=== PATIENT | female | born 1995 | race Caucasian/White ===

== ENCOUNTER 2017-11-18 05:41 | Outpatient (CLI) | payer BC ==
[~2017-11-18] VITALS: Ht 167.6 cm; Wt 64.9 kg
[~2017-11-18 05:41] MED LIST: ACHD5005 PO; ALBU8.5H2 IH; BC PILL PO; CELE100C PO; HYDR-3454 PO; OXYC-202 PO
[2017-11-18] MEDS ORDERED: CITA20TA9 PO (09:57)
[2017-11-18] MEDS ORDERED: PROP10TA8 PO (09:57)
[2017-11-21] MEDS ORDERED: AMOX250S5 PO (09:20)
[2017-11-21] MEDS ORDERED: DEXAINTSOL PO (09:20)
[2017-11-21] MEDS ORDERED: HYDR15SO8 PO (09:20)
[2017-11-21] MEDS ORDERED: TETRACAINESUCKERS MT (09:20)
== END 2017-11-18 13:32 ==
LOC: PREOP 05:41
PROVIDERS: ATTEND Otolaryngology Otolaryngology/Facial Plastic Surgery
DX: Z01.818 Encounter for other preprocedural examination (principal)

== ENCOUNTER → 2018-03-19 | Outpatient (CLI) | payer BC ==
[~2018-03-19] MED LIST changes: +AMOX250S5 PO; +CITA20TA9 PO; +DEXAINTSOL PO; +HYDR15SO8 PO; +IOHEXOL 350 MG/ML 100 ML (OMNIPAQUE 350) VIAL IV ONE; +NS 250 ML (IVPB) BAG IV ONE; -OXYC-202 PO; +OXYC1TAB12 PO; +PROP10TA8 PO; +TETRACAINESUCKERS MT
--- NOTE | 2018-03-19 08:52 | Diagnostic Imaging Report ---
PROCEDURE: CT abdomen and pelvis with contrast. TECHNIQUE: Multiple contiguous axial images were obtained through the abdomen and pelvis after administration of intravenous contrast. INDICATION: Left lower quadrant pain for one year. No prior studies are available for comparison. Lung bases are clear. No discrete liver mass is identified. The gallbladder is not identified and may be surgically absent. No biliary duct dilatation is seen. The pancreas and spleen are unremarkable. No adrenal mass is identified. The kidneys are unremarkable. The aorta is non-aneurysmal. Bowel loops are nondilated and appear nonobstructed. There is moderate stool in colon, perhaps owing to constipation. There is no ascites. No inflammatory process is seen. The bladder and uterus are unremarkable. Bony structures are nonacute. IMPRESSION: Moderate stool in the colon suggestive of constipation. Study is otherwise unremarkable. Dictated by: Dictated on workstation # [id number]
== END ==
LOC: RAD 08:02
PROVIDERS: ATTEND Internal Medicine
DX: K92.1 Melena (principal); R10.32 Left lower quadrant pain
CPT/HCPCS: 74177

== ENCOUNTER → 2018-04-10 | Outpatient (CLI) | payer BC ==
[~2018-04-10] MED LIST changes: -IOHEXOL 350 MG/ML 100 ML (OMNIPAQUE 350) VIAL IV ONE; -NS 250 ML (IVPB) BAG IV ONE
--- NOTE | 2018-04-10 17:31 | Diagnostic Imaging Report ---
INDICATION: Left lower abdominal pain. TIME OF EXAM: 3:46 PM FINDINGS: No definite free air is seen. The bowel gas pattern appears nonobstructive. No pathologic calcifications are seen although there is a small calcific density in the left pelvis approximately 3 mm in size. A distal left ureteric calculus cannot be entirely excluded. IMPRESSION: Unremarkable abdominal radiographs apart from questionable distal left ureteric calculus. No other abnormality is seen. Dictated by: Dictated on workstation # [id number]
== END ==
LOC: RAD 15:06
PROVIDERS: ATTEND Internal Medicine
DX: R10.84 Generalized abdominal pain (principal)
CPT/HCPCS: 74019

== ENCOUNTER → 2018-04-15 | Outpatient (CLI) | payer BC ==
--- NOTE | 2018-04-15 11:59 | Diagnostic Imaging Report ---
Supine abdomen at 1133 hours. INDICATION: Left ureteral stone. FINDINGS: The previous exam of 04/10/2018 noted a 3 MM linear calcification near the ureterovesical junction on the left. That finding is difficult to visualize on this study and the ureteral stone may have passed. No other abnormality is identified. IMPRESSION: The 3 MM calculus at the ureterovesical junction on the left seen previously is not well-visualized on this study and may have passed. Clinical followup is recommended. Dictated by: Dictated on workstation # [id number]
== END ==
LOC: RAD 10:52
PROVIDERS: ATTEND Urology
DX: N20.1 Calculus of ureter (principal)
CPT/HCPCS: 74018

== ENCOUNTER → 2018-05-26 | Outpatient (CLI) | payer BC ==
--- NOTE | 2018-05-26 11:09 | Diagnostic Imaging Report ---
Pelvis and bilateral hips. Indication: Right hip pain. A single AP view of the pelvis and AP and lateral views of both hip joints were obtained. There is no fracture, dislocation or acute bony abnormality evident. The hip and sacroiliac joints are fairly well maintained and appear similar to the prior abdomen exam of 04/15/2018. The soft tissues are unremarkable. Impression: There is no evidence for an acute bony abnormality. Dictated by: Dictated on workstation # [id number]
== END ==
LOC: RAD 08:32
PROVIDERS: ATTEND Internal Medicine
DX: M25.551 Pain in right hip (principal); M25.552 Pain in left hip
CPT/HCPCS: 73523

== ENCOUNTER 2018-07-11 14:00 | Inpatient (IN) | payer BC | END 2018-07-14 10:35 | disposition other institution (70) | LOC: 4TH 07-12 12:27 → ICU 14:00 | DX: A41.9 Sepsis, unspecified organism (principal); K52.9 Noninfective gastroenteritis and colitis, unspecified; K58.9 Irritable bowel syndrome, unspecified; E87.2 Acidosis; E86.0 Dehydration; K92.1 Melena; D64.9 Anemia, unspecified; J45.909 Unspecified asthma, uncomplicated; Z87.19 Personal history of other diseases of the digestive system; Z90.49 Acquired absence of other specified parts of digestive tract; Z87.442 Personal history of urinary calculi ==

== ENCOUNTER 2019-01-29 15:15 | Day surgery (SDC) | payer BC ==
[~2019-01-29] VITALS: Ht 167.6 cm; Wt 62.1 kg
[~2019-01-29 15:15] MED LIST changes: +ACETAMINOPHEN 500 MG TAB (TYLENOL) PO PRN; +ALPR0.254 PO; +ALPRAZolam 0.25 MG (XANAX) TAB PO PRN; +CALCIUM CARBONATE 500 MG (TUMS) TAB.CHEW PO PRN; +DICY10CA12 PO; +DICY20TA10 PO; +ETHY1TAB4 PO; -HYDR-3454 PO; +HYDR-3455 PO; +METOCLOPRAMIDE INJ 10 MG/2 ML (REGLAN) IVP PRN; +ONDA4TAB11 PO; +ONDANSETRON 4 MG (ZOFRAN) ORAL DISSOLVE TAB PO PRN; +ONDANSETRON 4 MG/2 ML (SDV) Z0FRAN IVP PRN; +POLY17PO6 PO; +PROMETHAZINE INJ 25 MG/ML (PHENERGAN) AMP IM PRN; +diphenhydrAMINE 25 MG TAB (BENADRYL) PO PRN
[2019-01-29] MEDS ORDERED: HYDR-3812 PO (15:34)
[2019-01-29] MEDS ORDERED: ETHY1TAB2 PO (15:34)
[2019-01-29] MEDS ORDERED: PROM12.511 PO (15:34)
[2019-01-29 15:40] LABS: BASOPHILS % (AUTO) 1 % (0-10); EOSINOPHILS # (AUTO) 0.1 10^3/uL (0.0-0.3); EOSINOPHILS % (AUTO) 2 % (0-10); HEMATOCRIT 35 % (35-52); HEMOGLOBIN 11.6 G/DL (11.5-16.0); LYMPHOCYTES # (AUTO) 1.8 X 10^3 (1.0-4.0); LYMPHOCYTES % (AUTO) 29 % (12-44); MEAN CORPUSCULAR HEMOGLOBIN 30 PG (25-34); MEAN CORPUSCULAR HGB CONC 34 G/DL (32-36); MEAN CORPUSCULAR VOLUME 88 FL (80-99); MEAN PLATELET VOLUME 10.7 FL (7.4-10.4); MONOCYTES # (AUTO) 0.4 X 10^3 (0.0-1.0); MONOCYTES % (AUTO) 7 % (0-12); NEUTROPHILS # (AUTO) 3.9 X 10^3 (1.8-7.8); NEUTROPHILS % (AUTO) 62 % (42-75); PLATELET COUNT 246 10^3/uL (130-400); RED CELL DISTRIBUTION WIDTH 11.9 % (10.0-14.5); WHITE BLOOD COUNT 6.3 10^3/uL (4.3-11.0)
[2019-01-29] MEDS ORDERED: MAGNESIUM CITRATE 300 ML BTL PO NR ×2 (15:45→19:00)
[2019-01-29 16:00] VITALS: BP 110/69
[2019-01-29 16:03] LABS: ALANINE AMINOTRANSFERASE 11 U/L (0-55); ALKALINE PHOSPHATASE 39 U/L (40-136); BILIRUBIN,TOTAL 0.4 MG/DL (0.1-1.0); BUN/CREATININE RATIO 17; CALCIUM 9.1 MG/DL (8.5-10.1); CARBON DIOXIDE 19 MMOL/L (21-32); CHLORIDE 109 MMOL/L (98-107); CREATININE SERUM 0.78 MG/DL (0.60-1.30); GFR ESTIMATED > 60; GLUCOSE 106 MG/DL (70-105); POTASSIUM 3.6 MMOL/L (3.6-5.0); SODIUM 137 MMOL/L (135-145); TOTAL PROTEIN 6.8 GM/DL (6.4-8.2)
[2019-01-29] MEDS: POTASSIUM CHLORIDE INJ 10 MEQ in NS IV 1000 ML 1,000 ML IV SCH ×2 (16:03→22:44)
[2019-01-29 16:07] LABS: ERYTHROCYTE SEDIMENTATION RATE 20 MM/HR (0-20)
[2019-01-29 16:08] VITALS: BP 110/69
[2019-01-29] MEDS: HYDROmorphone 2 MG/ML VIAL (DILAUDID) IVP PRN ×2 (16:09→21:33)
[2019-01-29] MEDS ORDERED: DIPH25CA79 PO (16:22)
[2019-01-29] MEDS ORDERED: TRAM50TA2 PO (16:22)
[2019-01-29] MEDS ORDERED: CETI10TA20 PO (16:22)
[2019-01-29] MEDS ORDERED: HOLD METFORMIN - RECEIVED CONTRAST 20 ML VIAL IV SCH (18:15)
[2019-01-29] MEDS ORDERED: IOHEXOL 350 MG/ML 100 ML (OMNIPAQUE 350) VIAL IV ONE (18:15)
[2019-01-29] MEDS ORDERED: NS 100 ML (IVPB) BAG IV ONE (18:15)
[2019-01-29] MEDS ORDERED: CATHETER FLUSH 10 ML SYR IV PRN (18:15)
[2019-01-29] MEDS ORDERED: DIATRIZOATE MEGLUM/SODIUM 37% 120 ML (GASTROGRAFIN) PO ONE (18:30)
--- NOTE | 2019-01-29 18:40 | Diagnostic Imaging Report ---
PROCEDURE: CT abdomen and pelvis with contrast. TECHNIQUE: Multiple contiguous axial images were obtained through the abdomen and pelvis after administration of intravenous contrast. Auto Exposure Controls were utilized during the CT exam to meet ALARA standards for radiation dose reduction. INDICATION: Constipation and diarrhea. COMPARISON: Multiple priors, most recent performed on 07/11/2018. FINDINGS: The lung bases are clear. The visualized heart is normal in size. The liver, spleen, pancreas, and adrenal glands are unremarkable. The gallbladder is surgically absent. There is no biliary or pancreatic ductal dilatation demonstrated. The kidneys are symmetric in size and demonstrate normal enhancement, without evidence of renal calculus, hydronephrosis, or suspicious renal mass. Oral contrast was administered and reaches the hepatic flexure, without evidence of obstruction. No focal bowel wall thickening is appreciated. The appendix is normal. No pneumoperitoneum, abdominal free fluid, or loculated collection. No lymphadenopathy is appreciated. The aorta is nonaneurysmal. There is no evidence of venous thrombosis. The bladder and uterus demonstrate a normal CT appearance. No adnexal mass or pelvic free fluid is appreciated. The abdominal wall is unremarkable. No acute osseous abnormality is appreciated. IMPRESSION: No acute abdominal or pelvic pathology. No focal bowel wall thickening or evidence of obstruction. Mild retained stool in the ascending colon, without significant stool burden appreciated. No significant change from prior. Dictated by: Dictated on workstation # [id number]
[2019-01-29 20:00] VITALS: BP 100/61
--- NOTE | 2019-01-29 21:04 | Progress Note - Hospitalist ---
Progress Note This is a 23-year-old white female clinic patient of mine for 13 years who has had a recent issue with hematochezia abdominal pain irregular bowel movements severe nausea and fatigue. She is in the midst of awaiting appointment for 02/18/2019 for inflammatory bowel disease specialist when I reached out to gastroenterology at [facility] who presented to the hospital after a direct admission from my clinic due to abdominal pain and severe nausea unable to maintain adequate fluids and nutrition. I did speak with general surgery who will likely perform endoscopy but we will obtain CT scan supportive IV fluids and manage the nausea with antiemetics in the meantime. MEME MORGAN DO Jan 29, 2019 21:03
[2019-01-30 00:27] VITALS: BP 95/59
[2019-01-30] MEDS: HYDROmorphone 2 MG/ML VIAL (DILAUDID) IVP PRN ×4 (02:19→16:56)
--- NOTE | 2019-01-30 02:26 | CONSULTATION REPORT ---
DATE OF SERVICE: 01/29/2019 ATTENDING PRIMARY CARE PHYSICIAN: Dr. Gracy Champagne. HISTORY OF PRESENT ILLNESS: The patient is a 23-year-old female who has had issues with crampy abdominal pain with associated nausea as well as occasional episodes of diarrhea and bloody stools for greater than 10 years of her life. She has had intermittent episodes of abdominal pain as well as change in bowel habits encompassing liquid stools as well as mucus and blood within her stools. She also does have constipation as well. She did have significant abdominal pain and was also found to be highly suspicious for sepsis and was treated with antibiotics for what appeared to be enteritis on a CT scan. She was referred to gastroenterology where she underwent a colonoscopy as well as a capsule endoscopy in July 2018; however, no findings were consistent with inflammatory bowel disease and she was treated medically for irritable bowel syndrome. She continues to have symptoms and states again she has had crampy abdominal pain and again noticed change in bowel habits recently with pain more in the mid gastric region as well as noticing slight mucusy stools yesterday. PAST MEDICAL HISTORY: Irritable bowel syndrome, previous history of enteritis and sepsis. PAST SURGICAL HISTORY: Laparoscopic cholecystectomy. ALLERGIES: No known drug allergies. MEDICATIONS: Oral contraceptive pill. SOCIAL HISTORY: Negative smoke, negative alcohol. Previous history of caffeine through pop; however, she has decreased significantly in the past year. FAMILY HISTORY: She has both paternal and maternal grandfathers with colon cancer; however, no first-degree relatives. No known family history of inflammatory bowel disease. VITAL SIGNS: Temperature 99.3, blood pressure 110/69, pulse 79, respirations 16, pulse ox 98% on room air. REVIEW OF SYSTEMS: Well-nourished female, in no acute distress. She is not experiencing any shortness of breath or difficulty breathing. No chest pain, palpitations, diaphoresis. Intermittent episodes of crampy abdominal pain in the mid gastric region; however, would move into different quadrants of the abdomen. Intermittent episodes of constipation and diarrhea as well as mucus within her stools as well as small amounts of blood per rectum as well. She also does have intermittent episodes of nausea; however, no vomiting. No fever, chills. No recent inadvertent weight loss. All other review of systems negative. PHYSICAL EXAMINATION: CHEST: Clear. Good breath sounds bilaterally. HEART: Regular, no murmurs. EXTREMITIES: No lower extremity edema, negative Homans' sign. HEENT: No scleral icterus. No cervical lymphadenopathy. ABDOMEN: Soft. There is pain along the entirety of the abdomen; however, more in the mid gastric region as well as the right upper abdominal quadrant. There are no peritoneal signs. No abdominal distention. SKIN: Warm, dry. LABORATORY DATA: WBC 6.9, hemoglobin 9.6, hematocrit 35, platelets 246. BUN 13, creatinine 0.78. ASSESSMENT AND PLAN: A 23-year-old female with recurrent episodes of crampy abdominal pain with associated nausea as well as intermittent episodes of diarrhea and constipation; however, also has issues with mucusy stools as well as blood per rectum. She has had previous endoscopy for; however, this did not heal. She was diagnosed with irritable bowel syndrome; however, she continues to have continued symptoms. The continued symptoms as well as the CT scan findings of enteritis on previous CT scan as well as a septic episode 07/2018 may indicate some level of undiagnosed inflammatory bowel disease. At this time, she is somewhat symptomatic and we will proceed with a colonoscopy as well as biopsies as appropriate on this admission. Job ID: [id number] DocumentID: [id number] Dictated Date: 01/29/2019 17:55:02 Student Services Advisor Date: 01/29/2019 18:37:15 Dictated By: AQUILINO HA MD
[2019-01-30 04:05] VITALS: BP 102/63
[2019-01-30] MEDS: POTASSIUM CHLORIDE INJ 10 MEQ in NS IV 1000 ML 1,000 ML IV SCH ×2 (05:31→13:32)
[2019-01-30 06:39] LABS: BASOPHILS % (AUTO) 0 % (0-10); EOSINOPHILS # (AUTO) 0.2 10^3/uL (0.0-0.3); EOSINOPHILS % (AUTO) 3 % (0-10); HEMATOCRIT 34 % (35-52); HEMOGLOBIN 11.3 G/DL (11.5-16.0); LYMPHOCYTES # (AUTO) 2.4 X 10^3 (1.0-4.0); LYMPHOCYTES % (AUTO) 33 % (12-44); MEAN CORPUSCULAR HEMOGLOBIN 30 PG (25-34); MEAN CORPUSCULAR HGB CONC 33 G/DL (32-36); MEAN CORPUSCULAR VOLUME 89 FL (80-99); MEAN PLATELET VOLUME 10.7 FL (7.4-10.4); MONOCYTES # (AUTO) 0.6 X 10^3 (0.0-1.0); MONOCYTES % (AUTO) 9 % (0-12); NEUTROPHILS # (AUTO) 4.1 X 10^3 (1.8-7.8); NEUTROPHILS % (AUTO) 56 % (42-75); PLATELET COUNT 243 10^3/uL (130-400); RED CELL DISTRIBUTION WIDTH 12.1 % (10.0-14.5); WHITE BLOOD COUNT 7.3 10^3/uL (4.3-11.0)
[2019-01-30 07:18] LABS: ALANINE AMINOTRANSFERASE 12 U/L (0-55); ALBUMIN 3.6 GM/DL (3.2-4.5); ALKALINE PHOSPHATASE 39 U/L (40-136); BILIRUBIN,TOTAL 0.4 MG/DL (0.1-1.0); BUN/CREATININE RATIO 10; CALCIUM 8.4 MG/DL (8.5-10.1); CARBON DIOXIDE 20 MMOL/L (21-32); CHLORIDE 110 MMOL/L (98-107); CREATININE SERUM 0.72 MG/DL (0.60-1.30); GFR ESTIMATED > 60; GLUCOSE 77 MG/DL (70-105); POTASSIUM 3.6 MMOL/L (3.6-5.0); SODIUM 138 MMOL/L (135-145); TOTAL PROTEIN 6.2 GM/DL (6.4-8.2)
[2019-01-30 08:00] VITALS: BP 107/72
--- NOTE | 2019-01-30 10:27 | History & Physical-Hospitalist ---
History of Present Illness HPI/Chief Complaint Chief complaint: Abdominal pain History present illness: This is a 23-year-old white female who has had an ongoing abdominal and gastrointestinal issues since May 2018 which is suspicious for inflammatory bowel disease but did have endoscopy by gastroenterology and labs revealed consistent with some sort of inflammatory bowel disease but that was not confirmed on colonoscopy but did reveal an ulcer. She is in the midst of seeing specialists for inflammatory bowel disease on 02/18/19 but the past 2 weeks she's had ongoing nausea significant weight loss of 15 pounds over the last several months and continued abdominal pain with altered bowel habits along with melena and hematochezia. CT scan was not very revealing that I obtained yesterday and the labs looked stable so she will undergo a colonoscopy by Dr. Rosales which is appreciated. Source: patient Exam Limitations: no limitations Date Seen 01/30/19 Time Seen by a Provider: 10:30 Attending Physician Gracy Morgan DO PCP Gracy Morgan DO Referring Physician Date of Admission Jan 29, 2019 at 15:15 Home Medications & Allergies Home Medications Reviewed patient Home Medication Reconciliation performed by pharmacy medication reconciliations production maintenance technician and/or nursing. Patients Allergies have been reviewed. Allergies Allergies Coded Allergies No Known Drug Allergies (Ytbvrqyxyd16/30/11) Past Nlsmsjk-Tavrwl-Yctfar Hx Past Med/Social Hx: Reviewed Nursing Past Med/Soc Hx, Reviewed and Corrections made Patient Social History Marrital Status: single Employed/Student: employed (RN ) Alcohol Use: Denies Use Recreational Drug Use: No Smoking Status: Never a Smoker Physical Abuse Screen: No Sexual Abuse: No Recent Foreign Travel: No Contact w/other who traveled: No Recent Hopitalizations: Yes (2018) Recent Infectious Disease Expo: No Immunizations Up To Date Tetanus Booster (TDap): Unknown Pediatric: No Date of Influenza Vaccine: Mar 25, 2018 Seasonal Allergies Seasonal Allergies: Yes Past Medical History Surgeries: Gallbladder Currently Using CPAP: No Currently Using BIPAP: No Reproductive: No Genitourinary: Kidney Stones Gastrointestinal: Gall Bladder Disease, Irritable Bowel HEENT: Tonsilitis History of Blood Disorders: No Adverse Reaction to Blood Cor[place]: No Family History No Pertinent Family Hx Review of Systems Constitutional: see HPI, weight loss EENTM: no symptoms reported Respiratory: no symptoms reported Gastrointestinal: abdominal pain (LLQ), loss of appetite, nausea, vomiting Physical Exam Physical Exam Vital Signs Vital Signs - First Documented 01/29/19 16:00 Temp 99.3 Pulse 76 Resp 16 B/P (MAP) 110/69 (83) Pulse Ox 98 O2 Delivery Room Air Capillary Refill : Height, Weight, BMI Height: 5'6.00" Weight: 137lbs. 0.0oz. 62.548773sk; 22.1 BMI Method: General Appearance: No Apparent Distress, WD/WN, Chronically ill, Thin, Other Eyes: Right Eye Normal Inspection, Right Eye PERRL HEENT: PERRL/EOMI, Normal ENT Inspection, Pharynx Normal, Moist Mucous Membranes Neck: Full Range of Motion, Normal Inspection, Non Tender Respiratory: Chest Non Tender, Lungs Clear, Normal Breath Sounds, No Accessory Muscle Use, No Respiratory Distress Cardiovascular: Regular Rate, Rhythm, No Edema, No Gallop, No JVD, No Murmur, Normal Peripheral Pulses Gastrointestinal: Normal Bowel Sounds, No Organomegaly, No Pulsatile Mass, Soft, Tenderness Back: Normal Inspection, No CVA Tenderness, No Vertebral Tenderness Extremity: Normal Capillary Refill, Normal Inspection, Normal Range of Motion, Non Tender, No Calf Tenderness, No Pedal Edema Neurologic/Psychiatric: Alert, Oriented x3, No Motor/Sensory Deficits, Normal Mood/Affect Skin: Normal Color, Warm/Dry Lymphatic: No Adenopathy Results Results/Procedures Labs Laboratory Tests 01/29/19 15:30 01/30/19 06:25 Patient resulted labs reviewed. Assessment/Plan Admission Diagnosis Assessment: Severe abdominal pain with nausea and weight loss of 15 pounds suspicious for inflammatory bowel disease Ulcer on colonoscopy [address] Martell Plan: IV fluids Antibiotics Pain meds Reviewed CT Reviewed labs Colonoscopy today by Dr. Rosales Admission Status: Observation Diagnosis/Problems Diagnosis/Problems (1) Inflammatory bowel disease Status: Chronic (2) Dehydration Status: Acute Clinical Quality Measures DVT/VTE Risk/Contraindication: RFS Level Per Nursing on Admit: 1=Low/No VTE PPX GRACY MORGAN DO Jan 30, 2019 10:27
[2019-01-30 12:00] VITALS: BP 94/58
[2019-01-30] MEDS ORDERED: PROPOFOL INJECTION 50 ML IV ONE ×2 (15:04→15:37)
[2019-01-30] MEDS ORDERED: MIDAZOLAM 2 MG/2 ML (VERSED) VIAL ONE (15:04)
[2019-01-30] MEDS ORDERED: LACTATED RINGERS 1,000 ML IV ONE (15:12)
[2019-01-30] MEDS ORDERED: LIDOCAINE JELLY 2% 6 ML SYRINGE ONE (15:20)
[2019-01-30] MEDS ORDERED: proPOfol 200 MG/20 ML (DIPRIVAN) VIAL IV ONE (15:36)
--- NOTE | 2019-01-30 15:58 | Anesthesia-General Post-Op ---
MAC Patient Condition Mental Status/LOC: Same as Preop Cardiovascular: Satisfactory Nausea/Vomiting: Absent Respiratory: Satisfactory Pain: Controlled Complications: Absent Post Op Complications Complications None Follow Up Care/Instructions Patient Instructions None needed. Anesthesiology Discharge Order Discharge Order Patient is doing well, no complaints, stable vital signs, no apparent adverse anesthesia problems. No complications reported per nursing. MARYANN KHANNA CRNA Jan 30, 2019 15:58
--- NOTE | 2019-01-30 16:00 | Progress Note-Post Operative ---
Post-Operative Progess Note Surgeon (s)/Can Cutter (s) Surgeon AQUILINO HA MD Can Cutter: none Pre-Operative Diagnosis chronic abd pain, rectal bleed Post-Operative Diagnosis mild inflammation rectum and hepatic flexure. Procedure & Operative Findings Date of Procedure 01/30/19 Procedure Performed/Findings colonoscopy with bx. Anesthesia Type mac Estimated Blood Loss Estimated blood loss (mL): minimal Specimens/Packing Specimens Removed rectum, hepatic flex AQUILINO HA MD Jan 30, 2019 16:00
[2019-01-30] MEDS ORDERED: LIDOCAINE JELLY 2% 6 ML SYRINGE TOP ONE (16:15)
[2019-01-30] MEDS ORDERED: LACTATED RINGERS 1,000 ML IV SCH (16:15)
--- NOTE | 2019-01-30 16:20 | OPERATIVE REPORT ---
DATE OF SERVICE: 01/30/2019 ATTENDING PRIMARY CARE PHYSICIAN: Gracy Champagne DO PREOPERATIVE DIAGNOSIS: Intermittent abdominal pain with change in bowel habits and rectal bleeding. POSTOPERATIVE DIAGNOSIS: Mild colitis of the hepatic flexure and the rectum. PROCEDURE PERFORMED: Colonoscopy with biopsy. SURGEON: Aquilino Rosales MD ANESTHESIA: Monitored anesthesia care. ESTIMATED BLOOD LOSS: Minimal. FINDINGS: There was mild patchy inflammation, which appeared to be very small superficial ulcerations identified of the rectum as well as the hepatic flexure. No active bleeding. DISPOSITION: The patient tolerated the procedure well. INDICATIONS: The patient is a 23-year-old female who has had a longstanding history of chronic abdominal pain and suspected inflammatory bowel disease. She reports that she has had crampy abdominal pain throughout all 4 quadrants of the abdomen and occasional episodes of diarrhea and bloody stools. With the abdominal pain, she will notice a change in bowel habits with liquid stools as well as mucus as well as blood within her stools as well. She did have a significant abdominal pain and there was high suspicion for sepsis and was treated with antibiotics in 07/2018. She was seen by Gastroenterology where she underwent a colonoscopy and there were no findings consistent with inflammatory bowel disease and she was treated medically for irritable bowel syndrome. She again has recurrent symptoms of crampy abdominal pain noticing a change in bowel habits. DESCRIPTION OF PROCEDURE: The patient was brought to the endoscopy suite, laid in left lateral decubitus position. After adequate IV pain and sedating medications and monitored anesthesia care, a digital rectal examination was performed. Normal sphincter tone was felt and no palpable masses. There were no fistulous tracts or any redness or erythema. The endoscope was then intubated to the anus and rectum gently insufflated. The endoscope was then advanced through the valves of [place] in the rectum. There were very small patchy superficial ulcers identified of the rectum with no active bleeding. A biopsy was taken with forceps with visualization of good hemostasis. Endoscope was then advanced to the sigmoid colon where there is no inflammation. The endoscope was then advanced to the descending and transverse colon. At approximately the hepatic flexure, a small area of patchy inflammation was also identified and a biopsy was taken with forceps. The endoscope was then advanced to the descending colon to the cecum. We were unable to intubate the terminal ileum. Endoscope was then slowly withdrawn while taking a second look and suctioning residual air with no additional findings. The patient tolerated the procedure well. We feel that she does have some level of inflammatory bowel disease and at this time with the identification of inflammation of the rectum and the hepatic flexure, this would most likely be more consistent with Crohn disease versus an ulcerative colitis. Either way, we will treat her medically and start mesalamine 1000 mg q.i.d. for six weeks. We will also await the biopsy results. Job ID: [id number] DocumentID: [id number] Dictated Date: 01/30/2019 15:59:33 Teaching Artist Date: 01/30/2019 16:19:19 Dictated By: AQUILINO ROSALES MD
[2019-01-30 16:23] VITALS: BP 105/68
[2019-01-30] MEDS ORDERED: MESALAMINE 250 MG (PENTASA) CAP PO SCH (17:00)
[2019-01-30] MEDS ORDERED: MESA10005 RC (17:43)
--- OUTSIDE RECORDS SUMMARY | 2019-02-02 14:41 | XMS REPORT | Continuity of Care Document ---
Author Author [facility] Organization [facility] Address Unknown Phone Unavailable Care Team Providers Care Manager Mail Name Role Phone MEME MORGAN DO PP Insurance Providers Payer Name Policy Number Subscriber Name Relationship [id number] Aurora Gore 03 Mother Advance Directives Directive Response Recorded Date Advance Directives N 04/13/13 8:27am Health Care Power of Cartography Supervisor N 04/13/13 8:27am Organ Donor N 04/13/13 8:27am Problems No Known Problems or Medical conditions. Allergies, Adverse Reactions, Alerts Allergen Type Severity Reaction Last Updated No Known Drug Allergies 07/06/11 Medications Medication Dose Units Route Sig Qty Days Acetaminophen/Hydrocodone Bitart ([place]et 5/325 Mg) 1 - 2 Tab PO UD Albuterol (Proair Hfa) 1 Puff IH Q4H PRN [Bc Pill] 1 Tab PO DAILY Response Recorded Date/Time Status not known Unknown Results Test Date Result Interp. Ref. Range Basophils # (Auto) April 08, 2013 3:40pm 0.1 10^3/uL N 0.0-0.1 Basophils (%) (Auto) April 08, 2013 3:40pm 1 % N 0-10 Eosinophils # (Auto) April 08, 2013 3:40pm 0.4 10^3/uL H 0.0-0.3 Eosinophils (%) (Auto) April 08, 2013 3:40pm 5 % N 0-10 Hematocrit April 08, 2013 3:40pm 36 % N 35-52 Hemoglobin April 08, 2013 3:40pm 12.1 G/DL N 11.5-16.0 Lymphocytes # (Auto) April 08, 2013 3:40pm 2.5 X 10^3 N 1.0-4.0 Lymphocytes (%) (Auto) April 08, 2013 3:40pm 35 % N 12-44 Mean Corpuscular Hemoglobin April 08, 2013 3:40pm 29 PG N 25-34 Mean Corpuscular Hemoglobin Concent April 08, 2013 3:40pm 34 G/DL N 32-36 Mean Corpuscular Volume April 08, 2013 3:40pm 87 FL N 80-99 Mean Platelet Volume April 08, 2013 3:40pm 10.7 FL H 7.4-10.4 Monocytes # (Auto) April 08, 2013 3:40pm 0.7 X 10^3 N 0.0-1.0 Monocytes (%) (Auto) April 08, 2013 3:40pm 9 % N 0-12 Neutrophils # (Auto) April 08, 2013 3:40pm 3.7 X 10^3 N 1.8-7.8 Neutrophils (%) (Auto) April 08, 2013 3:40pm 50 % N 42-75 Platelet Count April 08, 2013 3:40pm 250 10^3/uL N 130-400 Red Blood Count April 08, 2013 3:40pm 4.13 10^6/uL L 4.35-5.85 Red Cell Distribution Width April 08, 2013 3:40pm 12.1 % N 10.0-14.5 Urine Test July 06, 2011 7:10am NEGATIVE - White Blood Count April 08, 2013 3:40pm 7.3 10^3/uL N 4.3-11.0 Procedures Procedure Code Date HYSTEROSCOPY BIOPSY 27656 07/06/11 MRSA Screen 04/08/13
--- OUTSIDE RECORDS SUMMARY | 2019-02-02 14:42 | XMS REPORT | Continuity of Care Document ---
Author Organization Unknown Address Unknown Phone Unavailable Allergies Active Description Code Type Severity Reaction Onset Reported/Identified Relationship to Patient Clinical Status Yes No Known Drug Allergies [id number] Drug Allergy Unknown N/A 07/06/2011 Medications There is no data. Problems Date Dx Coded Attending Type Code Diagnosis Diagnosed By 02/24/2013 493.90 ASTHMA UNSPECIFIED 02/24/2013 V70.3 SPORTS PHYSICAL 04/13/2013 MOIRA RICHARDS, SAVANNA Wick Ot 626.2 EXCESSIVE MENSTRUATION 08/05/2014 MOIRA RICHARDS, SAVANNA Wick Ot 285.9 08/05/2014 MOIRA RICHARDS, SAVANNA Wick Ot 626.2 08/05/2014 MOIRA RICHARDS, SAVANNA Wick Ot 626.8 08/05/2014 MOIRA RICHARDS, SAVANNA Wick Ot V72.63 08/05/2014 MOIRA RICHARDS, SAVANNA Wick Ot V74.8 09/01/2014 MOIRA RICHARDS, SAVANNA Wick Ot 285.9 09/01/2014 MOIRA RICHARDS, SAVANNA Wick Ot 626.2 09/01/2014 MOIRA RICHARDS, SAVANNA Wick Ot 626.8 09/01/2014 MOIRA RICHARDS, SAVANNA Wick Ot V72.63 09/01/2014 MOIRA RICHARDS, SAVANNA Wick Ot V74.8 12/22/2014 MOIRA RICHARDS, SAVANNA Wick Ot 285.9 12/22/2014 MOIRA RICHARDS, SAVANNA Wick Ot 626.2 12/22/2014 MOIRA RICHARDS, SAVANNA Wick Ot 626.8 12/22/2014 MOIRA RICHARDS, SAVANNA Wick Ot V72.63 12/22/2014 MOIRA RICHARDS, SAVANNA Wick Ot V74.8 02/01/2015 MOIRA RICHARDS, SAVANNA Wick Ot 285.9 02/01/2015 SAVANNA PIZARRO MD Ot 626.2 02/01/2015 SAVANNA PIZARRO MD Ot 626.8 02/01/2015 SAVANNA PIZARRO MD, Ot V72.63 02/01/2015 SAVANNA PIZARRO MD, Ot V74.8 03/24/2015 SAVANNA PIZARRO MD Ot 285.9 03/24/2015 SAVANNA PIZARRO MD, Ot 626.2 03/24/2015 SAVANNA PIZARRO MD, Ot 626.8 03/24/2015 SAVANNA PIZARRO MD, Ot V72.63 03/24/2015 SAVANNA PIZARRO MD, Ot V74.8 03/24/2015 CATHY SULTANA, MEME Ot 789.00 03/24/2015 CATHY SULTANA, MEME Ot 789.00 03/28/2015 MARY RICHARDS, FRANKIE Quesada Ot 575.11 CHRONIC CHOLECYSTITIS 03/28/2015 MARY RICHARDS, FRANKIE Quesada Ot 575.8 DIS OF GALLBLADDER NEC 03/28/2015 MARY RICHARDS, FRANKIE Quesada Ot V74.8 SCREEN-BACTERIAL DIS NEC 04/06/2015 SAVANNA PIZARRO MD Ot 575.8 04/15/2015 SAVANNA PIZARRO MD, Ot N93.8 OTHER SPECIFIED ABNORMAL UTERINE AND VAG 05/02/2015 SAVANNA PIZARRO MD Ot D64.9 05/02/2015 SAVANNA PIZARRO MD, Ot N93.8 05/02/2015 SAVANNA PIZARRO MD, Ot Z01.812 05/02/2015 SAVANNA PIZARRO MD, Ot Z11.2 07/06/2016 SAVANNA PIZARRO MD Ot 285.9 ANEMIA NOS 07/06/2016 SAVANNA PIZARRO MD, Ot 626.2 EXCESSIVE MENSTRUATION 07/06/2016 SAVANNA PIZARRO MD, Ot 626.8 MENSTRUAL DISORDER NEC 07/06/2016 SAVANNA PIZARRO MD, Ot V72.63 PRE-PROCEDURAL LABORATORY EXAMINATION 07/06/2016 SAVANNA PIZARRO MD, Ot V74.8 SCREEN-BACTERIAL DIS NEC 07/06/2016 MEME MORGAN DO Ot 789.00 ABDOMINAL PAIN, UNSPECIFIED SITE 07/06/2016 SAVANNA PIZARRO MD Ot 575.8 DIS OF GALLBLADDER NEC 07/06/2016 MARY RICHARDS, FRANKIE Quesada Ot 575.8 DIS OF GALLBLADDER NEC 07/06/2016 MARY RICHARDS, FRANKIE Quesada Ot V72.84 EXAM PRE-OPERATIVE NOS 07/06/2016 SAVANNA PIZARRO MD Ot D64.9 ANEMIA, UNSPECIFIED 07/06/2016 SAVANNA PIZARRO MD Ot N93.8 OTHER SPECIFIED ABNORMAL UTERINE AND VAG 07/06/2016 SAVANNA PIZARRO MD, Ot Z01.812 ENCOUNTER FOR PREPROCEDURAL LABORATORY E 07/06/2016 SAVANNA PIZARRO MD Ot Z11.2 ENCOUNTER FOR SCREENING FOR OTHER BACTER 11/18/2017 GERONIMO PERALTA MD Ot Z01.818 ENCOUNTER FOR OTHER PREPROCEDURAL EXAMIN 11/19/2017 GERONIMO PERALTA MD Ot Z01.818 ENCOUNTER FOR OTHER PREPROCEDURAL EXAMIN 11/21/2017 GERONIMO PERALTA MD Ot 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 11/21/2017 GERONIMO PERALTA MD Ot J35.01 CHRONIC TONSILLITIS 11/21/2017 GERONIMO PERALTA MD Ot J35.8 OTHER CHRONIC DISEASES OF TONSILS AND AD 11/25/2017 GERONIMO PERALTA MD Ot 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 11/25/2017 GERONIMO PERALTA MD Ot J35.01 CHRONIC TONSILLITIS 11/25/2017 GERONIMO PERALTA MD Ot J35.8 OTHER CHRONIC DISEASES OF TONSILS AND AD 11/27/2017 GERONIMO PERALTA MD Ot 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 11/27/2017 GERONIMO PERALTA MD Ot J35.01 CHRONIC TONSILLITIS 11/27/2017 GERONIMO PERALTA MD Ot J35.8 OTHER CHRONIC DISEASES OF TONSILS AND AD 12/18/2017 GERONIMO PERALTA MD Ot 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 12/18/2017 GERONIMO PERALTA MD Ot J35.01 CHRONIC TONSILLITIS 12/18/2017 GERONIMO PERALTA MD P Ot J35.8 OTHER CHRONIC DISEASES OF TONSILS AND AD 03/18/2018 SAVANNA PIZARRO MD, Ot 285.9 ANEMIA NOS 03/18/2018 SAVANNA PIZARRO MD, Ot 626.2 EXCESSIVE MENSTRUATION 03/18/2018 SAVANNA PIZARRO MD, Ot 626.8 MENSTRUAL DISORDER NEC 03/18/2018 SAVANNA PIZARRO MD, Ot V72.63 PRE-PROCEDURAL LABORATORY EXAMINATION 03/18/2018 SAVNANA PIZARRO MD, Ot V74.8 SCREEN-BACTERIAL DIS NEC 03/18/2018 MEME MORGAN DO Ot 789.00 ABDOMINAL PAIN, UNSPECIFIED SITE 03/18/2018 SAVANNA PIZARRO MD Ot 575.8 DIS OF GALLBLADDER NEC 03/18/2018 FRANKIE HERNANDEZ MD Ot 575.8 DIS OF GALLBLADDER NEC 03/18/2018 MARY RICHARDS, FRANKIE Quesada Ot V72.84 EXAM PRE-OPERATIVE NOS 03/18/2018 SAVANNA PIZARRO MD, Ot D64.9 ANEMIA, UNSPECIFIED 03/18/2018 SAVANNA PIZARRO MD, Ot N93.8 OTHER SPECIFIED ABNORMAL UTERINE AND VAG 03/18/2018 SAVANNA PIZARRO MD, Ot Z01.812 ENCOUNTER FOR PREPROCEDURAL LABORATORY E 03/18/2018 SAVANNA PIZARRO MD, Ot Z11.2 ENCOUNTER FOR SCREENING FOR OTHER BACTER 03/20/2018 MEME MORGAN DO Ot K92.1 MELENA 03/20/2018 MEME MORGAN DO Ot R10.32 LEFT LOWER QUADRANT PAIN 03/27/2018 SAVANNA PIZARRO MD, Ot 285.9 ANEMIA NOS 03/27/2018 SAVANNA PIZARRO MD, Ot 626.2 EXCESSIVE MENSTRUATION 03/27/2018 SAVANNA PIZARRO MD, Ot 626.8 MENSTRUAL DISORDER NEC 03/27/2018 SAVANNA PIZARRO MD, Ot V72.63 PRE-PROCEDURAL LABORATORY EXAMINATION 03/27/2018 SAVANNA PIZARRO MD, Ot V74.8 SCREEN-BACTERIAL DIS NEC 03/27/2018 MEME MORGAN DO Ot 789.00 ABDOMINAL PAIN, UNSPECIFIED SITE 03/27/2018 MOIRA RICHARDS, SAVANNA Wick Ot 575.8 DIS OF GALLBLADDER NEC 03/27/2018 MARY RICHARDS, FRANKIE Quesada Ot 575.8 DIS OF GALLBLADDER NEC 03/27/2018 MARY RICHARDS, FRANKIE Quesada Ot V72.84 EXAM PRE-OPERATIVE NOS 03/27/2018 MOIRA RICHARDS, SAVANNA Wick Ot D64.9 ANEMIA, UNSPECIFIED 03/27/2018 SAVANNA PIZARRO MD Ot N93.8 OTHER SPECIFIED ABNORMAL UTERINE AND VAG 03/27/2018 SAVANNA PIZARRO MD, Ot Z01.812 ENCOUNTER FOR PREPROCEDURAL LABORATORY E 03/27/2018 SAVANNA PIZARRO MD, Ot Z11.2 ENCOUNTER FOR SCREENING FOR OTHER BACTER 03/27/2018 CATHY DO MEME Ot K92.1 MELENA 03/27/2018 CATHY DO MEME Ot R10.32 LEFT LOWER QUADRANT PAIN 04/02/2018 CATHY SULTANA MEME Ot K92.1 MELENA 04/02/2018 MORGAN DO, MEME Ot R10.32 LEFT LOWER QUADRANT PAIN 04/16/2018 BONITA RICHARDS, DEBORAH Downing Ot N20.1 CALCULUS OF URETER 04/21/2018 BONITA RICHARDS, DEBORAH Downing Ot N20.1 CALCULUS OF URETER 04/24/2018 CATHY DO MEME Ot R10.84 GENERALIZED ABDOMINAL PAIN 05/27/2018 CATHY DO, MEME Ot M25.551 PAIN IN RIGHT HIP 05/27/2018 MORGAN DO, MEME Ot M25.552 PAIN IN LEFT HIP 05/28/2018 MORGAN DO, MEME Ot M25.551 PAIN IN RIGHT HIP 05/28/2018 MORGAN DO, MEME Ot M25.552 PAIN IN LEFT HIP 06/12/2018 MORGAN DO, MEME Ot M25.551 PAIN IN RIGHT HIP 06/12/2018 MORGAN DO, MEME Ot M25.552 PAIN IN LEFT HIP 06/19/2018 MORGAN DO MEME Ot M25.551 PAIN IN RIGHT HIP 06/19/2018 MORGAN DO MEME Ot M25.552 PAIN IN LEFT HIP 07/14/2018 CATHY SULTANA MEME Ot A41.9 SEPSIS, UNSPECIFIED ORGANISM 07/14/2018 MEME MORGAN DO Ot D64.9 ANEMIA, UNSPECIFIED 07/14/2018 MEME MORGAN DO Ot E86.0 DEHYDRATION 07/14/2018 MEME MORGAN DO Ot E87.2 ACIDOSIS 07/14/2018 MEME MORGAN DO Ot J45.909 UNSPECIFIED ASTHMA, UNCOMPLICATED 07/14/2018 MEME MORGAN DO Ot K52.3 INDETERMINATE COLITIS 07/14/2018 MEME MORGAN DO Ot K52.9 NONINFECTIVE GASTROENTERITIS AND COLITIS 07/14/2018 MEME MORGAN DO Ot K58.9 IRRITABLE BOWEL SYNDROME WITHOUT DIARRHE 07/14/2018 MEME MORGAN DO Ot K92.1 MELENA 07/14/2018 MEME MORGAN DO Ot Z87.19 PERSONAL HISTORY OF OTHER DISEASES OF TH 07/14/2018 MEME MORGAN DO Ot Z87.442 PERSONAL HISTORY OF URINARY CALCULI 07/14/2018 MEME MORGAN DO Ot Z90.49 ACQUIRED ABSENCE OF OTHER SPECIFIED PART 09/16/2018 MEME MORGAN DO Ot M25.551 PAIN IN RIGHT HIP 09/16/2018 MEME MORGAN DO Ot M25.552 PAIN IN LEFT HIP Procedures Code Description [place] [address] VISUAL ACUITY SCREEN 02/25/2013 Results Test Result Range Urine beta human chorionic gonadotropin (hCG) measurement - 11/21/17 06:30 Urine beta human chorionic gonadotropin (hCG) measurement NEGATIVE NEGATIVE Methicillin resistant Staphylococcus aureus (MRSA) screening culture - 11/21/17 06:45 Methicillin resistant Staphylococcus aureus (MRSA) screening culture NEG NRG Complete blood count (CBC) with automated white blood cell (WBC) differential - 11/21/17 07:29 Blood leukocytes automated count (number/volume) 6.4 10*3/uL 4.3-11.0 Blood erythrocytes automated count (number/volume) 4.03 10*6/uL 4.35-5.85 Venous blood hemoglobin measurement (mass/volume) 12.3 g/dL 11.5-16.0 Blood hematocrit (volume fraction) 36 % 35-52 Automated erythrocyte mean corpuscular volume 89 [foz_us] 80-99 Automated erythrocyte mean corpuscular hemoglobin (mass per erythrocyte) 31 pg 25-34 Automated erythrocyte mean corpuscular hemoglobin concentration measurement (mass/volume) 34 g/dL 32-36 Automated erythrocyte distribution width ratio 11.6 % 10.0- 14.5 Automated blood platelet count (count/volume) 251 10*3/uL 130-400 Automated blood platelet mean volume measurement 10.9 [foz_us] 7.4-10.4 Automated blood neutrophils/100 leukocytes 54 % 42-75 Automated blood lymphocytes/100 leukocytes 31 % 12-44 Blood monocytes/100 leukocytes 8 % 0-12 Automated blood eosinophils/100 leukocytes 7 % 0-10 Automated blood basophils/100 leukocytes 1 % 0-10 Blood neutrophils automated count (number/volume) 3.4 10*3 1.8-7.8 Blood lymphocytes automated count (number/volume) 2.0 10*3 1.0-4.0 Blood monocytes automated count (number/volume) 0.5 10*3 0.0- 1.0 Automated eosinophil count 0.4 10*3/uL 0.0-0.3 Automated blood basophil count (count/volume) 0.1 10*3/uL 0.0-0.1 Complete blood count (CBC) with automated white blood cell (WBC) differential - 07/11/18 14:25 Blood leukocytes automated count (number/volume) 14.8 10*3/uL 4.3-11.0 Blood erythrocytes automated count (number/volume) 4.42 10*6/uL 4.35-5.85 Venous blood hemoglobin measurement (mass/volume) 13.2 g/dL 11.5-16.0 Blood hematocrit (volume fraction) 38 % 35-52 Automated erythrocyte mean corpuscular volume 85 [foz_us] 80-99 Automated erythrocyte mean corpuscular hemoglobin (mass per erythrocyte) 30 pg 25-34 Automated erythrocyte mean corpuscular hemoglobin concentration measurement (mass/volume) 35 g/dL 32-36 Automated erythrocyte distribution width ratio 12.3 % 10.0- 14.5 Automated blood platelet count (count/volume) 317 10*3/uL 130-400 Automated blood platelet mean volume measurement 11.0 [foz_us] 7.4-10.4 Automated blood neutrophils/100 leukocytes 89 % 42-75 Automated blood lymphocytes/100 leukocytes 4 % 12-44 Blood monocytes/100 leukocytes 7 % 0-12 Automated blood eosinophils/100 leukocytes 0 % 0-10 Automated blood basophils/100 leukocytes 0 % 0-10 Blood neutrophils automated count (number/volume) 13.2 10*3 1.8-7.8 Blood lymphocytes automated count (number/volume) 0.6 10*3 1.0-4.0 Blood monocytes automated count (number/volume) 1.0 10*3 0.0- 1.0 Automated eosinophil count 0.0 10*3/uL 0.0-0.3 Automated blood basophil count (count/volume) 0.0 10*3/uL 0.0-0.1 Comprehensive metabolic panel - 07/11/18 14:25 Serum or plasma sodium measurement (moles/volume) 137 mmol/L 135-145 Serum or plasma potassium measurement (moles/volume) 4.2 mmol/L 3.6-5.0 Serum or plasma chloride measurement (moles/volume) 109 mmol/L 98-107 Carbon dioxide 15 mmol/L 21-32 Serum or plasma anion gap determination (moles/volume) 13 mmol/L 5-14 Serum or plasma urea nitrogen measurement (mass/volume) 14 mg/dL 7-18 Serum or plasma creatinine measurement (mass/volume) 0.77 mg/dL 0.60-1.30 Serum or plasma urea nitrogen/creatinine mass ratio 18 NRG Serum or plasma creatinine measurement with calculation of estimated glomerular filtration rate > NRG Serum or plasma glucose measurement (mass/volume) 100 mg/dL 70-105 Serum or plasma calcium measurement (mass/volume) 9.8 mg/dL 8.5-10.1 Serum or plasma total bilirubin measurement (mass/volume) 0.8 mg/dL 0.1-1.0 Serum or plasma alkaline phosphatase measurement (enzymatic activity/volume) 60 U/L 40-136 Serum or plasma aspartate aminotransferase measurement (enzymatic activity/volume) 26 U/L 5-34 Serum or plasma alanine aminotransferase measurement (enzymatic activity/volume) 22 U/L 0-55 Serum or plasma protein measurement (mass/volume) 8.6 g/dL 6.4-8.2 Serum or plasma albumin measurement (mass/volume) 4.9 g/dL 3.2-4.5 Serum or plasma amylase measurement (enzymatic activity/volume) - 07/11/18 14:25 Serum or plasma amylase measurement (enzymatic activity/volume) 69 U/L 25-125 Lipase - 07/11/18 14:25 Lipase 47 U/L 8-78 Blood lactic acid measurement (moles/volume) - 07/11/18 14:25 Blood lactic acid measurement (moles/volume) 2.63 mmol/L 0.50- 2.00 Blood manual differential performed detection - 07/11/18 14:25 Blood monocytes/100 leukocytes 8 % NRG Manual blood segmented neutrophils/100 leukocytes 88 % NRG Blood band neutrophils/100 leukocytes 0 % NRG Manual blood lymphocytes/100 leukocytes 4 % NRG Manual eosinophils/100 leukocytes in nose 0 % NRG Manual blood basophils/100 leukocytes 0 % NRG Blood erythrocyte morphology finding identification NORMAL NRG Erythrocyte sedimentation rate by westergren method - 07/11/18 14:25 Erythrocyte sedimentation rate by westergren method 17 mm 0-20 Bacterial blood culture - 07/11/18 14:25 Bacterial blood culture NG NRG Methicillin resistant Staphylococcus aureus (MRSA) screening culture - 07/11/18 15:00 Methicillin resistant Staphylococcus aureus (MRSA) screening culture NEG NRG Serum or plasma choriogonadotropin ( test) detection - 07/11/18 15:04 Serum or plasma choriogonadotropin ( test) detection NEGATIVE NEGATIVE Bacterial blood culture - 07/11/18 15:04 Bacterial blood culture NG NRG Serum or plasma lactate measurement (moles/volume) - 07/11/18 16:17 Serum or plasma lactate measurement (moles/volume) 0.79 mmol/L 0.50-2.00 Complete urinalysis with reflex to culture - 07/11/18 17:50 Urine color determination YELLOW NRG Urine clarity determination SLIGHTLY CLOUDY NRG Urine pH measurement by test strip 5 5-9 Specific gravity of urine by test strip 1.020 1.016-1.022 Urine protein assay by test strip, semi-quantitative NEGATIVE NEGATIVE Urine glucose detection by automated test strip NEGATIVE NEGATIVE Erythrocytes detection in urine sediment by light microscopy NEGATIVE NEGATIVE Urine ketones detection by automated test strip 2+ NEGATIVE Urine nitrite detection by test strip NEGATIVE NEGATIVE Urine total bilirubin detection by test strip NEGATIVE NEGATIVE Urine urobilinogen measurement by automated test strip (mass/volume) NORMAL NORMAL Urine leukocyte esterase detection by dipstick 2+ NEGATIVE Automated urine sediment erythrocyte count by microscopy (number/high power field) NONE NRG Automated urine sediment leukocyte count by microscopy (number/high power field) [HPF] NRG Bacteria detection in urine sediment by light microscopy TRACE NRG Squamous epithelial cells detection in urine sediment by light microscopy 2-5 NRG Crystals detection in urine sediment by light microscopy NONE NRG Casts detection in urine sediment by light microscopy NONE NRG Mucus detection in urine sediment by light microscopy NEGATIVE NRG Complete urinalysis with reflex to culture NO NRG Venous blood hemoglobin measurement (mass/volume) - 07/11/18 22:36 Venous blood hemoglobin measurement (mass/volume) 11.2 g/dL 11.5-16.0 Blood lactic acid measurement (moles/volume) - 07/11/18 22:36 Blood lactic acid measurement (moles/volume) 0.85 mmol/L 0.50- 2.00 Whole blood basic metabolic panel - 07/11/18 22:36 Serum or plasma sodium measurement (moles/volume) 139 mmol/L 135-145 Serum or plasma potassium measurement (moles/volume) 3.7 mmol/L 3.6-5.0 Serum or plasma chloride measurement (moles/volume) 110 mmol/L 98-107 Carbon dioxide 19 mmol/L 21-32 Serum or plasma anion gap determination (moles/volume) 10 mmol/L 5-14 Serum or plasma urea nitrogen measurement (mass/volume) 10 mg/dL 7-18 Serum or plasma creatinine measurement (mass/volume) 0.79 mg/dL 0.60-1.30 Serum or plasma urea nitrogen/creatinine mass ratio 13 NRG Serum or plasma creatinine measurement with calculation of estimated glomerular filtration rate > NRG Serum or plasma glucose measurement (mass/volume) 85 mg/dL 70-105 Serum or plasma calcium measurement (mass/volume) 8.8 mg/dL 8.5-10.1 Complete blood count (CBC) with automated white blood cell (WBC) differential - 07/12/18 02:56 Blood leukocytes automated count (number/volume) 6.1 10*3/uL 4.3-11.0 Blood erythrocytes automated count (number/volume) 3.15 10*6/uL 4.35-5.85 Venous blood hemoglobin measurement (mass/volume) 9.3 g/dL 11.5-16.0 Blood hematocrit (volume fraction) 28 % 35-52 Automated erythrocyte mean corpuscular volume 89 [foz_us] 80-99 Automated erythrocyte mean corpuscular hemoglobin (mass per erythrocyte) 30 pg 25-34 Automated erythrocyte mean corpuscular hemoglobin concentration measurement (mass/volume) 33 g/dL 32-36 Automated erythrocyte distribution width ratio 12.2 % 10.0- 14.5 Automated blood platelet count (count/volume) 189 10*3/uL 130-400 Automated blood platelet mean volume measurement 11.0 [foz_us] 7.4-10.4 Automated blood neutrophils/100 leukocytes 59 % 42-75 Automated blood lymphocytes/100 leukocytes 24 % 12-44 Blood monocytes/100 leukocytes 11 % 0-12 Automated blood eosinophils/100 leukocytes 5 % 0-10 Automated blood basophils/100 leukocytes 0 % 0-10 Blood neutrophils automated count (number/volume) 3.6 10*3 1.8-7.8 Blood lymphocytes automated count (number/volume) 1.5 10*3 1.0-4.0 Blood monocytes automated count (number/volume) 0.7 10*3 0.0- 1.0 Automated eosinophil count 0.3 10*3/uL 0.0-0.3 Automated blood basophil count (count/volume) 0.0 10*3/uL 0.0-0.1 Comprehensive metabolic panel - 07/12/18 02:56 Serum or plasma sodium measurement (moles/volume) 141 mmol/L 135-145 Serum or plasma potassium measurement (moles/volume) 3.6 mmol/L 3.6-5.0 Serum or plasma chloride measurement (moles/volume) 116 mmol/L 98-107 Carbon dioxide 18 mmol/L 21-32 Serum or plasma anion gap determination (moles/volume) 7 mmol/L 5-14 Serum or plasma urea nitrogen measurement (mass/volume) 9 mg/dL 7-18 Serum or plasma creatinine measurement (mass/volume) 0.66 mg/dL 0.60-1.30 Serum or plasma urea nitrogen/creatinine mass ratio 14 NRG Serum or plasma creatinine measurement with calculation of estimated glomerular filtration rate > NRG Serum or plasma glucose measurement (mass/volume) 79 mg/dL 70-105 Serum or plasma calcium measurement (mass/volume) 7.6 mg/dL 8.5-10.1 Serum or plasma total bilirubin measurement (mass/volume) 1.4 mg/dL 0.1-1.0 Serum or plasma alkaline phosphatase measurement (enzymatic activity/volume) 40 U/L 40-136 Serum or plasma aspartate aminotransferase measurement (enzymatic activity/volume) 16 U/L 5-34 Serum or plasma alanine aminotransferase measurement (enzymatic activity/volume) 11 U/L 0-55 Serum or plasma protein measurement (mass/volume) 5.1 g/dL 6.4-8.2 Serum or plasma albumin measurement (mass/volume) 3.1 g/dL 3.2-4.5 CALCIUM CORRECTED 8.3 mg/dL 8.5-10.1 Serum or plasma phosphate measurement (mass/volume) - 07/12/18 02:56 Serum or plasma phosphate measurement (mass/volume) 3.0 mg/dL 2.3-4.7 Magnesium - 07/12/18 02:56 Magnesium 1.6 mg/dL 1.8-2.4 Stool bacteria identification by culture - 07/12/18 16:00 Stool bacteria identification by culture [facility] Complete blood count (CBC) with automated white blood cell (WBC) differential - 07/13/18 06:35 Blood leukocytes automated count (number/volume) 4.5 10*3/uL 4.3-11.0 Blood erythrocytes automated count (number/volume) 3.68 10*6/uL 4.35-5.85 Venous blood hemoglobin measurement (mass/volume) 10.9 g/dL 11.5-16.0 Blood hematocrit (volume fraction) 33 % 35-52 Automated erythrocyte mean corpuscular volume 90 [foz_us] 80-99 Automated erythrocyte mean corpuscular hemoglobin (mass per erythrocyte) 30 pg 25-34 Automated erythrocyte mean corpuscular hemoglobin concentration measurement (mass/volume) 33 g/dL 32-36 Automated erythrocyte distribution width ratio 12.4 % 10.0- 14.5 Automated blood platelet count (count/volume) 218 10*3/uL 130-400 Automated blood platelet mean volume measurement 11.0 [foz_us] 7.4-10.4 Automated blood neutrophils/100 leukocytes 42 % 42-75 Automated blood lymphocytes/100 leukocytes 41 % 12-44 Blood monocytes/100 leukocytes 9 % 0-12 Automated blood eosinophils/100 leukocytes 8 % 0-10 Automated blood basophils/100 leukocytes 0 % 0-10 Blood neutrophils automated count (number/volume) 1.9 10*3 1.8-7.8 Blood lymphocytes automated count (number/volume) 1.9 10*3 1.0-4.0 Blood monocytes automated count (number/volume) 0.4 10*3 0.0- 1.0 Automated eosinophil count 0.3 10*3/uL 0.0-0.3 Automated blood basophil count (count/volume) 0.0 10*3/uL 0.0-0.1 Comprehensive metabolic panel - 07/13/18 06:35 Serum or plasma sodium measurement (moles/volume) 140 mmol/L 135-145 Serum or plasma potassium measurement (moles/volume) 3.6 mmol/L 3.6-5.0 Serum or plasma chloride measurement (moles/volume) 112 mmol/L 98-107 Carbon dioxide 19 mmol/L 21-32 Serum or plasma anion gap determination (moles/volume) 9 mmol/L 5-14 Serum or plasma urea nitrogen measurement (mass/volume) 5 mg/dL 7-18 Serum or plasma creatinine measurement (mass/volume) 0.80 mg/dL 0.60-1.30 Serum or plasma urea nitrogen/creatinine mass ratio 6 NRG Serum or plasma creatinine measurement with calculation of estimated glomerular filtration rate > NRG Serum or plasma glucose measurement (mass/volume) 86 mg/dL 70-105 Serum or plasma calcium measurement (mass/volume) 8.7 mg/dL 8.5-10.1 Serum or plasma total bilirubin measurement (mass/volume) 0.7 mg/dL 0.1-1.0 Serum or plasma alkaline phosphatase measurement (enzymatic activity/volume) 48 U/L 40-136 Serum or plasma aspartate aminotransferase measurement (enzymatic activity/volume) 19 U/L 5-34 Serum or plasma alanine aminotransferase measurement (enzymatic activity/volume) 14 U/L 0-55 Serum or plasma protein measurement (mass/volume) 6.4 g/dL 6.4-8.2 Serum or plasma albumin measurement (mass/volume) 3.9 g/dL 3.2-4.5 CALCIUM CORRECTED 8.8 mg/dL 8.5-10.1 Complete blood count (CBC) with automated white blood cell (WBC) differential - 07/14/18 06:20 Blood leukocytes automated count (number/volume) 5.1 10*3/uL 4.3-11.0 Blood erythrocytes automated count (number/volume) 3.42 10*6/uL 4.35-5.85 Venous blood hemoglobin measurement (mass/volume) 10.2 g/dL 11.5-16.0 Blood hematocrit (volume fraction) 30 % 35-52 Automated erythrocyte mean corpuscular volume 89 [foz_us] 80-99 Automated erythrocyte mean corpuscular hemoglobin (mass per erythrocyte) 30 pg 25-34 Automated erythrocyte mean corpuscular hemoglobin concentration measurement (mass/volume) 34 g/dL 32-36 Automated erythrocyte distribution width ratio 11.8 % 10.0- 14.5 Automated blood platelet count (count/volume) 201 10*3/uL 130-400 Automated blood platelet mean volume measurement 11.0 [foz_us] 7.4-10.4 Automated blood neutrophils/100 leukocytes 40 % 42-75 Automated blood lymphocytes/100 leukocytes 44 % 12-44 Blood monocytes/100 leukocytes 8 % 0-12 Automated blood eosinophils/100 leukocytes 8 % 0-10 Automated blood basophils/100 leukocytes 0 % 0-10 Blood neutrophils automated count (number/volume) 2.0 10*3 1.8-7.8 Blood lymphocytes automated count (number/volume) 2.2 10*3 1.0-4.0 Blood monocytes automated count (number/volume) 0.4 10*3 0.0- 1.0 Automated eosinophil count 0.4 10*3/uL 0.0-0.3 Automated blood basophil count (count/volume) 0.0 10*3/uL 0.0-0.1 Comprehensive metabolic panel - 07/14/18 06:20 Serum or plasma sodium measurement (moles/volume) 140 mmol/L 135-145 Serum or plasma potassium measurement (moles/volume) 3.4 mmol/L 3.6-5.0 Serum or plasma chloride measurement (moles/volume) 112 mmol/L 98-107 Carbon dioxide 20 mmol/L 21-32 Serum or plasma anion gap determination (moles/volume) 8 mmol/L 5-14 Serum or plasma urea nitrogen measurement (mass/volume) 6 mg/dL 7-18 Serum or plasma creatinine measurement (mass/volume) 0.78 mg/dL 0.60-1.30 Serum or plasma urea nitrogen/creatinine mass ratio 8 NRG Serum or plasma creatinine measurement with calculation of estimated glomerular filtration rate > NRG Serum or plasma glucose measurement (mass/volume) 93 mg/dL 70-105 Serum or plasma calcium measurement (mass/volume) 8.6 mg/dL 8.5-10.1 Serum or plasma total bilirubin measurement (mass/volume) 0.3 mg/dL 0.1-1.0 Serum or plasma alkaline phosphatase measurement (enzymatic activity/volume) 42 U/L 40-136 Serum or plasma aspartate aminotransferase measurement (enzymatic activity/volume) 22 U/L 5-34 Serum or plasma alanine aminotransferase measurement (enzymatic activity/volume) 21 U/L 0-55 Serum or plasma protein measurement (mass/volume) 6.3 g/dL 6.4-8.2 Serum or plasma albumin measurement (mass/volume) 3.6 g/dL 3.2-4.5 CALCIUM CORRECTED 8.9 mg/dL 8.5-10.1 Complete blood count (CBC) with automated white blood cell (WBC) differential - 01/29/19 15:30 Blood leukocytes automated count (number/volume) 6.3 10*3/uL 4.3-11.0 Blood erythrocytes automated count (number/volume) 3.92 10*6/uL 4.35-5.85 Venous blood hemoglobin measurement (mass/volume) 11.6 g/dL 11.5-16.0 Blood hematocrit (volume fraction) 35 % 35-52 Automated erythrocyte mean corpuscular volume 88 [foz_us] 80-99 Automated erythrocyte mean corpuscular hemoglobin (mass per erythrocyte) 30 pg 25-34 Automated erythrocyte mean corpuscular hemoglobin concentration measurement (mass/volume) 34 g/dL 32-36 Automated erythrocyte distribution width ratio 11.9 % 10.0- 14.5 Automated blood platelet count (count/volume) 246 10*3/uL 130-400 Automated blood platelet mean volume measurement 10.7 [foz_us] 7.4-10.4 Automated blood neutrophils/100 leukocytes 62 % 42-75 Automated blood lymphocytes/100 leukocytes 29 % 12-44 Blood monocytes/100 leukocytes 7 % 0-12 Automated blood eosinophils/100 leukocytes 2 % 0-10 Automated blood basophils/100 leukocytes 1 % 0-10 Blood neutrophils automated count (number/volume) 3.9 10*3 1.8-7.8 Blood lymphocytes automated count (number/volume) 1.8 10*3 1.0-4.0 Blood monocytes automated count (number/volume) 0.4 10*3 0.0- 1.0 Automated eosinophil count 0.1 10*3/uL 0.0-0.3 Automated blood basophil count (count/volume) 0.0 10*3/uL 0.0-0.1 Serum or plasma choriogonadotropin ( test) detection - 01/29/19 15:30 Serum or plasma choriogonadotropin ( test) detection NEGATIVE NEGATIVE Comprehensive metabolic panel - 01/29/19 15:30 Serum or plasma sodium measurement (moles/volume) 137 mmol/L 135-145 Serum or plasma potassium measurement (moles/volume) 3.6 mmol/L 3.6-5.0 Serum or plasma chloride measurement (moles/volume) 109 mmol/L 98-107 Carbon dioxide 19 mmol/L 21-32 Serum or plasma anion gap determination (moles/volume) 9 mmol/L 5-14 Serum or plasma urea nitrogen measurement (mass/volume) 13 mg/dL 7-18 Serum or plasma creatinine measurement (mass/volume) 0.78 mg/dL 0.60-1.30 Serum or plasma urea nitrogen/creatinine mass ratio 17 NRG Serum or plasma creatinine measurement with calculation of estimated glomerular filtration rate > NRG Serum or plasma glucose measurement (mass/volume) 106 mg/dL 70-105 Serum or plasma calcium measurement (mass/volume) 9.1 mg/dL 8.5-10.1 Serum or plasma total bilirubin measurement (mass/volume) 0.4 mg/dL 0.1-1.0 Serum or plasma alkaline phosphatase measurement (enzymatic activity/volume) 39 U/L 40-136 Serum or plasma aspartate aminotransferase measurement (enzymatic activity/volume) 15 U/L 5-34 Serum or plasma alanine aminotransferase measurement (enzymatic activity/volume) 11 U/L 0-55 Serum or plasma protein measurement (mass/volume) 6.8 g/dL 6.4-8.2 Serum or plasma albumin measurement (mass/volume) 4.0 g/dL 3.2-4.5 CALCIUM CORRECTED 9.1 mg/dL 8.5-10.1 Serum or plasma C reactive protein measurement (mass/volume) - 01/29/19 15:30 Serum or plasma C reactive protein measurement (mass/volume) 0.39 mg/dL 0.00-0.50 Erythrocyte sedimentation rate by westergren method - 01/29/19 15:30 Erythrocyte sedimentation rate by westergren method 20 mm 0-20 IRON TEST - 01/29/19 15:30 Serum or plasma iron measurement (mass/volume) 87 % 35-180 Blood lactic acid measurement (moles/volume) - 01/29/19 15:32 Blood lactic acid measurement (moles/volume) 0.60 mmol/L 0.50- 2.00 C DIFFICILE AG + TOXIN A/B. - 01/29/19 21:30 RESULTS NEGATIVE FOR ANTIGEN AND TOXIN A/B [facility] Stool bacteria identification by culture - 01/29/19 21:30 Stool bacteria identification by culture [facility] Complete blood count (CBC) with automated white blood cell (WBC) differential - 01/30/19 06:25 Blood leukocytes automated count (number/volume) 7.3 10*3/uL 4.3-11.0 Blood erythrocytes automated count (number/volume) 3.79 10*6/uL 4.35-5.85 Venous blood hemoglobin measurement (mass/volume) 11.3 g/dL 11.5-16.0 Blood hematocrit (volume fraction) 34 % 35-52 Automated erythrocyte mean corpuscular volume 89 [foz_us] 80-99 Automated erythrocyte mean corpuscular hemoglobin (mass per erythrocyte) 30 pg 25-34 Automated erythrocyte mean corpuscular hemoglobin concentration measurement (mass/volume) 33 g/dL 32-36 Automated erythrocyte distribution width ratio 12.1 % 10.0- 14.5 Automated blood platelet count (count/volume) 243 10*3/uL 130-400 Automated blood platelet mean volume measurement 10.7 [foz_us] 7.4-10.4 Automated blood neutrophils/100 leukocytes 56 % 42-75 Automated blood lymphocytes/100 leukocytes 33 % 12-44 Blood monocytes/100 leukocytes 9 % 0-12 Automated blood eosinophils/100 leukocytes 3 % 0-10 Automated blood basophils/100 leukocytes 0 % 0-10 Blood neutrophils automated count (number/volume) 4.1 10*3 1.8-7.8 Blood lymphocytes automated count (number/volume) 2.4 10*3 1.0-4.0 Blood monocytes automated count (number/volume) 0.6 10*3 0.0- 1.0 Automated eosinophil count 0.2 10*3/uL 0.0-0.3 Automated blood basophil count (count/volume) 0.0 10*3/uL 0.0-0.1 Comprehensive metabolic panel - 01/30/19 06:25 Serum or plasma sodium measurement (moles/volume) 138 mmol/L 135-145 Serum or plasma potassium measurement (moles/volume) 3.6 mmol/L 3.6-5.0 Serum or plasma chloride measurement (moles/volume) 110 mmol/L 98-107 Carbon dioxide 20 mmol/L 21-32 Serum or plasma anion gap determination (moles/volume) 8 mmol/L 5-14 Serum or plasma urea nitrogen measurement (mass/volume) 7 mg/dL 7-18 Serum or plasma creatinine measurement (mass/volume) 0.72 mg/dL 0.60-1.30 Serum or plasma urea nitrogen/creatinine mass ratio 10 NRG Serum or plasma creatinine measurement with calculation of estimated glomerular filtration rate > NRG Serum or plasma glucose measurement (mass/volume) 77 mg/dL 70-105 Serum or plasma calcium measurement (mass/volume) 8.4 mg/dL 8.5-10.1 Serum or plasma total bilirubin measurement (mass/volume) 0.4 mg/dL 0.1-1.0 Serum or plasma alkaline phosphatase measurement (enzymatic activity/volume) 39 U/L 40-136 Serum or plasma aspartate aminotransferase measurement (enzymatic activity/volume) 17 U/L 5-34 Serum or plasma alanine aminotransferase measurement (enzymatic activity/volume) 12 U/L 0-55 Serum or plasma protein measurement (mass/volume) 6.2 g/dL 6.4-8.2 Serum or plasma albumin measurement (mass/volume) 3.6 g/dL 3.2-4.5 CALCIUM CORRECTED 8.7 mg/dL 8.5-10.1 Encounters ACCT No. Visit Date/Time Discharge Status Pt. Type Provider Facility Loc./Unit Complaint [id number] 02/14/2015 22:27:20 02/14/2015 23:59:59 CLS Outpatient Vanita Trejo [id number] 11/05/2014 13:59:06 11/05/2014 23:59:59 CLS Outpatient Kelly Aburto [id number] 02/24/2013 15:29:00 Document Registration [id number] 04/15/2015 11:17:02 ACT Document Registration [id number] 01/29/2019 15:15:00 01/30/2019 18:00:00 [id number] 07/11/2018 14:00:00 07/14/2018 10:35:00 DIS Inpatient MORGAN DO MEME [facility] 4TH ACUTE ABDOMINAL PAIN [id number] 05/26/2018 08:32:00 05/26/2018 23:59:59 CLS Outpatient MORGAN DO MEME [facility] RAD RIGHT HIP PAIN [id number] 04/15/2018 10:52:00 04/15/2018 23:59:59 CLS Outpatient DEBORAH MESA MD [facility] RAD LT RETERAL STONE [id number] 04/10/2018 15:06:00 04/10/2018 23:59:59 CLS Outpatient MORGAN DO MEME [facility] RAD R10.84 [id number] 03/17/2018 07:22:00 03/17/2018 23:59:59 CLS Outpatient CATHY DO MEME [facility] RAD MELENA,GENERALIZED ABD PAIN [id number] 11/21/2017 06:20:00 11/21/2017 11:20:00 DIS Outpatient GERONIMO PERALTA MD [facility] ADENOTONSILLAR HYPETROPHY, TONSIL STONES [id number] 11/18/2017 05:41:00 11/18/2017 13:32:00 DIS Outpatient GERONIMO PERALTA MD [facility] PREOP ADENOTONSILLAR HYPERTROPHY, TONSIL STONES [id number] 04/15/2015 11:16:00 04/15/2015 15:47:00 DIS Outpatient SAVANNA PIZARRO MD [facility] DYSFUNCTIONAL UTERINE BLEEDING [id number] 04/13/2015 11:23:00 04/13/2015 23:59:59 CLS Outpatient SAVANNA PIZARRO MD [facility] PREOP DYSFUNCTIONAL UTERINE BLEEDING [id number] 03/28/2015 11:45:00 03/28/2015 17:15:00 DIS Outpatient FRANKIE HERNANDEZ MD [facility] GALLBLADDER DYSKINEASE [id number] 03/25/2015 11:54:00 03/25/2015 23:59:59 CLS Outpatient FRANKIE HERNANDEZ MD [facility] PREOP GALLBLADDER DYSKINEASE [id number] 03/24/2015 09:50:00 03/24/2015 23:59:59 CLS Outpatient SAVANNA PIZARRO MD [facility] CARD RIGHT UPPER QUADRANT PAIN [id number] 03/08/2015 07:17:00 03/08/2015 23:59:59 CLS Outpatient MEME MORGAN DO [facility] RAD ABDOMINAL PAIN [id number] 04/13/2013 08:01:00 04/13/2013 11:37:00 DIS Outpatient SAVANNA PIZARRO MD [facility] DUB,MENORRHAGIA [id number] 04/08/2013 15:19:00 04/08/2013 23:59:59 CLS Outpatient SAVANNA PIZARRO MD [facility] PREOP DUB,MENORRHAGIA [id number] 01/15/2013 14:05:00 01/15/2013 23:59:59 CLS Outpatient
== END 2019-01-30 18:00 | disposition home or self-care (01) ==
LOC: 4TH 15:15 → SDC 15:15 → UNDOADMOB 15:15 → 4TH 15:15 → UNDODISOB 01-30 18:00 → SDC 01-30 18:00
PROVIDERS: ATTEND Internal Medicine
DX: K62.6 Ulcer of anus and rectum (principal); K63.89 Other specified diseases of intestine; K52.9 Noninfective gastroenteritis and colitis, unspecified; K92.1 Melena; E86.0 Dehydration; J30.2 Other seasonal allergic rhinitis; Z87.19 Personal history of other diseases of the digestive system; Z90.49 Acquired absence of other specified parts of digestive tract; Z79.899 Other long term (current) drug therapy; Z80.0 Family history of malignant neoplasm of digestive organs; Z79.891 Long term (current) use of opiate analgesic
CPT/HCPCS: 36415; 74177; 80053; 83540; 83605; 84703; 85025; 85652; 86141; 87015; 87045; 87046; 87324; 87449; 87899

== ENCOUNTER 2019-03-10 11:05 | Outpatient (RCR) | payer BC ==
[2019-03-02 08:57] VITALS: BP 99/67
[2019-03-02] MEDS: FERRIC CARBOXYMALTOSE INJ 750 MG in NS (IVPB) 250 ML IV SCH (09:28)
[~2019-03-10] VITALS: Ht 167.6 cm; Wt 62.1 kg
[~2019-03-10 11:05] MED LIST changes: -ACETAMINOPHEN 500 MG TAB (TYLENOL) PO PRN; -ALPRAZolam 0.25 MG (XANAX) TAB PO PRN; -CALCIUM CARBONATE 500 MG (TUMS) TAB.CHEW PO PRN; +CETI10TA20 PO; +DIPH25CA79 PO; +ETHY1TAB2 PO; +HYDR-3812 PO; +MESA10005 RC; -METOCLOPRAMIDE INJ 10 MG/2 ML (REGLAN) IVP PRN; -ONDANSETRON 4 MG (ZOFRAN) ORAL DISSOLVE TAB PO PRN; -ONDANSETRON 4 MG/2 ML (SDV) Z0FRAN IVP PRN; +PROM12.511 PO; -PROMETHAZINE INJ 25 MG/ML (PHENERGAN) AMP IM PRN; +TRAM50TA2 PO; -diphenhydrAMINE 25 MG TAB (BENADRYL) PO PRN
[2019-03-10] MEDS: FERRIC CARBOXYMALTOSE INJ 750 MG in NS (IVPB) 250 ML IV SCH (11:24)
[2019-03-10 11:51] VITALS: BP 103/66
== END 2019-03-10 11:51 | disposition home or self-care (01) ==
LOC: SDC 11:05
PROVIDERS: ATTEND Internal Medicine
DX: D50.9 Iron deficiency anemia, unspecified (principal)
CPT/HCPCS: 96365